=== PATIENT | female | born 1975 | race Caucasian/White ===

== ENCOUNTER 2016-08-28 18:10 | Emergency (ER) | payer OTHER ==
[~2016-08-28] VITALS: Ht 170.2 cm; Wt 61.1 kg
[~2016-08-28 18:10] MED LIST: ALPRAZOLAM ER1 MG PO; ALPRAZOLAM ER2 MG PO; ALPRAZOLAM ER3 MG PO; ATIVAN0.5 MG PO; ATIVAN1 MG PO; BUSPAR15 MG PO; BUSPAR30 MG PO; BUTALB-APAP-CA1 EACH PO; BUTALB-CAFF-AC1 EACH PO; CITALOPRAM HBR20 MG PO; CYCLOBENZAPRINE10 MG PO; DESYREL 150 MG150 MG PO; DESYREL100 MG PO; DOCUSATE SODIU100 MG PO; FIORICET,ESG1 TABLET PO; FIORINAL 50-321 EACH PO; FLEXERIL10 MG PO; FLOMAX0.4 MG PO; HYDROCODON-ACE1 EAC7 PO; HYDROXYZINE HCL25 MG PO; HYDROXYZINE PAM25 MG PO; IBUPROFEN800 MG PO; INDERAL20 MG PO; KEFLEX500 MG PO; LAMICTAL ODT100 MG PO; LAMICTAL150 MG PO; LAMICTAL200 MG PO; LAMOTRIGINE100 MG PO; LAMOTRIGINE200 MG PO; LEVAQUIN500 MG PO; LEXAPRO10 MG PO; LORAZEPAM0.5 MG PO; LORAZEPAM1 MG PO; MINIPRESS2 MG PO; NAPROSYN500 MG PO; NAPROXEN500 MG PO; NOHOMEMEDS; NORCO 5/3251 TABLET PO; OMEPRAZOLE20 MG PO; OXCARBAZEPINE150 MG PO; PEPCID20 MG PO; PERCOCET 5/31 TABLET PO; PHENERGAN25 MG PR; POTASSIUM-9999 MG PO; PRAZOSIN HCL1 MG PO; PRAZOSIN HCL2 MG PO; PROMETHAZINE HC25 M1 PO; PROPRANOLOL HCL20 MG PO; RISPERDAL0.5 MG PO; RISPERIDONE0.5 MG PO; TOPIRAMATE50 MG PO; TRAMADOL HCL50 MG PO; TRAZODONE HCL50 MG PO; TYLENOL WITH C1 EACH PO; ULTRAM50 MG PO; XANAX XR1 MG PO; XANAX XR2 MG PO; XANAX XR3 MG PO; XANAX0.5 MG PO; XANAX1 MG PO; ZOLOFT25 MG PO
[2016-08-28 19:08] LABS: HEMATOCRIT 35.7 % (36.0-46.0); MCH 29.6 PG (29.0-34.0); MCHC 33.1 G/DL (30.0-36.0); MCV 89.7 FL (83-99); MEAN PLAT.VOLUME 9.6 uM^3 (9.5-12.4); PLATELET COUNT 435 K/uL (156-360); RBC DIS.WIDTH-CV 16.1 % (11.8-14.6); RBC DIS.WIDTH-SD 51.4 % (39-53); RED BLOOD COUNT 3.98 M/uL (3.80-5.20); WHITE BLOOD COUNT 10.4 K/uL (4.1-10.2)
[2016-08-28 19:20] LABS: CHLORIDE 111 mEq/L (99-109); POTASSIUM 3.2 mEq/L (3.7-5.4); SODIUM 140 mEq/L (136-147)
[2016-08-28 19:22] LABS: GLUCOSE 101 mg/dL (70-99)
[2016-08-28 19:24] LABS: ANION GAP 9 MEQ/L (2-14)
[2016-08-28 19:26] LABS: GFR ESTIMATE (CALCULATED) > 59 mL/min/
[2016-08-28 19:27] LABS: UREA NITROGEN (BUN) 10 mg/dL (9-23)
[2016-08-28 19:28] LABS: TROP-I INTERPRETATION NEGATIVE; TROPONIN-I < 0.01 ng/mL (0.0-0.30)
[2016-08-28 22:32] LABS: TROP-I INTERPRETATION NEGATIVE; TROPONIN-I < 0.01 ng/mL (0.0-0.30)
[2016-08-28 23:17] VITALS: BP 120/85
== END 2016-08-28 23:17 | disposition home or self-care (01) ==
LOC: EME 18:10
PROVIDERS: Physician Assistant
DX: R07.9 Chest pain, unspecified (principal); R42 Dizziness and giddiness; R06.00 Dyspnea, unspecified; I10 Essential (primary) hypertension
CPT/HCPCS: 71020; 80048; 84484; 85027; 93005; 99281; 99283

== ENCOUNTER 2017-06-17 15:41 | Emergency (ER) | payer OTHER ==
[~2017-06-17] VITALS: Ht 170.2 cm; Wt 98.2 kg
[2017-06-17] MEDS ORDERED: MOTRIN800 MG PO (18:15)
[2017-06-17] MEDS ORDERED: NORCO 7.5/321 TABLET PO (18:15)
[2017-06-17 18:28] VITALS: BP 116/65
== END 2017-06-17 18:29 | disposition home or self-care (01) ==
LOC: EME 15:41
DX: M25.572 Pain in left ankle and joints of left foot (principal); S82.892D Other fracture of left lower leg, subsequent encounter for closed fracture with routine healing; W18.30XA Fall on same level, unspecified, initial encounter; F32.9 Major depressive disorder, single episode, unspecified; K21.9 Gastro-esophageal reflux disease without esophagitis; F41.9 Anxiety disorder, unspecified; R56.9 Unspecified convulsions; F43.10 Post-traumatic stress disorder, unspecified; F17.200 Nicotine dependence, unspecified, uncomplicated
CPT/HCPCS: 73610; 99281; 99283

== ENCOUNTER 2018-03-01 15:14 | Emergency (ER) | payer OTHER ==
[~2018-03-01 15:14] MED LIST changes: +MOTRIN800 MG PO; +NORCO 7.5/321 TABLET PO
== END 2018-03-01 16:00 | disposition left against medical advice (07) ==
LOC: EME 15:14
DX: Z00.8 Encounter for other general examination (principal); Z53.21 Procedure and treatment not carried out due to patient leaving prior to being seen by health care provider